=== PATIENT | male | born 1985 | race Caucasian/White ===

== ENCOUNTER 2016-10-18 08:06 | Inpatient (IN) | payer OTHER ==
[~2016-10-18] VITALS: Ht 182.9 cm; Wt 81.8 kg
[2016-10-18 08:14] VITALS: BP 124/67; PULSE 100; RESP 16; O2SAT 99
--- NOTE | 2016-10-18 08:18 | ED.REPORT ---
HPI-General Illness Date of Service Oct 18, 2016 ED Provider: Greg Tobar MD Patient is an otherwise healthy 31 year old male who presents to the ED via EMS complaining of abdominal pain onset yesterday. His abdominal pain is sharp and achy with radiation to his back. Associated symptoms include subjective fever, chills, nausea and vomiting onset last night. He denies dysuria, hematuria, or any other symptoms. He was given 100 Fentanyl, Zofran, and 20mg Ketamine en route. He had an unknown abdominal surgery in [place] 1 yr ago. When questioned about the surgery he is unable to articulate why he had surgery or what was done. It is unclear why he was given ketamine en route. Nursing Notes Stated Complaint: COLIC Chief Complaint: Male Abdominal Pain Nursing Notes Reviewed: Yes Allergies: Coded Allergies: Penicillins (Verified Allergy, Severe, hives, 10/18/16) haloperidol (Verified Allergy, Severe, EPS, 10/18/16) latex (Verified Allergy, Severe, rash, mouth swelling, 10/18/16) No Active Prescriptions or Reported Meds General Time Seen by MD: 08:17 Chief Complaint Abdominal pain Hx Obtained From: Patient Arrived By: Ambulance Sudden in Onset?: Yes Onset Occurred: Yesterday Symptom Duration: Since onset Similar Sx Previous: No Past Medical History Past Medical History PTSD Past Surgical History Foot Hand wisdom teeth unknown abdominal surg Reports: Appendectomy Smoking History Unknown if Ever Smoker Ambulatory Status Independent Review of Systems Full Review of Systems Constitutional: Reports: Chills, Fever GI: Reports: Abdominal pain, Nausea, Vomiting Male: Denies Dysuria, Denies Hematuria Musculoskeletal: Reports: Back pain Complete sys rev & neg: except as marked. Physical Exam Vital Signs Vital Signs Date Time Temp Pulse Resp B/P Pulse Ox O2 Delivery O2 Flow Rate FiO2 10/18/16 10:05 77 16 130/75 99 Room Air 10/18/16 08:14 37.0 100 16 124/67 99 Room Air Initial VS: Reviewed, Vital signs normal Head / Eyes: Atraumatic, Normocephalic Neck: Full range of motion Respiratory: Breath sounds normal, Clear to auscultation, No respiratory distress Cardiovascular: Regular rate & rhythm, Heart sounds normal, Intact distal pulses Skin: Warm, Dry Neurologic: Alert, Oriented, Nonfocal Psychiatric: Mood/affect normal, Behavior normal, Normal thought content General/Constitutional: Awake, Alert, Well developed Abdomen: Atraumatic, Soft, No guarding, No rebound Well healed scar in his RUQ Diffusely mild tenderness Male Genitourinary: Atraumatic, Inspection NL, Penis NL circumcised Interpretation & Diagnostics Lab Results Interpretation Result Diagram: 10/18/16 0820 10/18/16 0820 Test 10/18/16 08:20 White Blood Count 12.7th/mm3 (3.8-10.1) Red Blood Count 5.95mil/mm3 (4.40-5.80) Hemoglobin 17.8g/dL (13.8-17.2) Hematocrit 51.1% (41.0-50.0) Mean Corpuscular Volume 85.9fL (81-100) Mean Corpuscular Hemoglobin 29.9pg (27.0-35.0) Mean Corpuscular Hemoglobin Concent 34.8% (32.0-37.0) Red Cell Distribution Width 13.1% (12.3-15.4) Platelet Count 237bil/L (150-400) Neutrophils (%) (Auto) 82.5% (40-74) Lymphocytes (%) (Auto) 8.9% (14-46) Monocytes (%) (Auto) 6.1% (4-12) Eosinophils (%) (Auto) 2.0% (0-5) Basophils (%) (Auto) 0.3% (0-3) Sodium Level 139mEq/L (134-144) Potassium Level 3.9mEq/L (3.5-5.2) Chloride Level 103mEq/L (97-108) Carbon Dioxide Level 22mmol/L (18-29) Blood Urea Nitrogen 10mg/dL (6-20) Creatinine 0.90mg/dL (0.76-1.27) Estimat Glomerular Filtration Rate 103mL/min (>59) Glucose Level 127mg/dL (60-99) Calcium Level 8.6mg/dL (8.5-10.1) Magnesium Level 2.0mg/dL (1.6-2.6) Total Bilirubin 0.6mg/dL (0.0-1.2) Aspartate Amino Transf (AST/SGOT) 13U/L (0-50) Alanine Aminotransferase (ALT/SGPT) 12U/L (0-44) Alkaline Phosphatase 97U/L (25-150) Total Protein 7.0g/dL (6.4-8.4) Albumin 3.8g/dL (3.4-5.0) Lipase 40U/L (13-60) Hold Jennings Top Tube Received (Received) CT Abd / Pelvis Interpretation CT KUB: IMPRESSION: 1. Marked gastric distention and distention of the mid small bowel with stool in the colon, suspicious for partial small bowel obstruction. Early ileus could also be considered in the differential. No definite transition point is visualized; however this is limited study given the lack of contrast and intraperitoneal fat. No free fluid. No pneumoperitoneum. Consider placing an NG tube to decompress the stomach. 2. No nephrolithiasis, hydronephrosis, hydroureter, or ureterolithiasis. These findings were discussed with Dr. Tobar at 10:27 AM on 10/18/16. Dictated by: Roxana Jeffers M.D. on 10/18/2016 at 10:09 Approved by: Roxana Jeffers M.D. on 10/18/2016 at 10:28 Interpretation / Wet Read by: Interpret - Radiologist, Discussed w radiologist Re-Eval/Medical Decision Med Decision/Clinical Course Patient is a 31-year-old male with unspecified abdominal surgery approximately one year ago who presents to the emergency department complaining of abdominal pain, nausea and vomiting. Here in the emergency department he appears uncomfortable and is vomiting into an emesis bag but is otherwise afebrile and hemodynamically stable. Laboratory studies were obtained as below: cbc leukocytosis 12.7 hematocrit 51.1 lipase and LFT nL limits CMP unremarkable Patient was treated with the below medications: IV fluid Zofran hydromorphone CT KUB: 1. Marked gastric distention and distention of the mid small bowel with stool in the colon, suspicious for partial small bowel obstruction. Early ileus could also be considered in the differential. No definite transition point is visualized; however this is limited study given the lack of contrast and intraperitoneal fat. No free fluid. No pneumoperitoneum. Consider placing an NG tube to decompress the stomach. 2. No nephrolithiasis, hydronephrosis, hydroureter, or ureterolithiasis. Noncontrast abdominal CT was obtained in this patient due to initial triage description of symptoms that sounded suggestive of renal colic. Upon further evaluating the patient is presentation is suggestive of possible small bowel obstruction as evidenced by imaging findings as above. Patient was made NPO a nasogastric tube was placed. He reported symptom improvement with decompression of the stomach. Patient was discussed with Dr. Mullins (general surgery) requested patient be admitted to the hospitalist service and he will consult. Patient was transferred in stable condition. Time of Eval: 10:39 Re-Evaluation/Progress Note: Rechecked patient. Discussed imaging results and plan for admission. Patient understands and agrees with plan. All questions addressed at this time. Consultation #1: Referral / Consult Name: Alcon Mullins MD Consulted With: Surgeon Call Returned at: 10:45 [employer] Consultant: Will see patient, Agrees with eval, Agrees with plan Note: Discussed pt's case. Admit pt to hospitalist. Consultation #2: Referral / Consult Name: Grant Nelson MD Consulted With: Hospitalist [employer] Consultant: Will see patient, Agrees with eval, Agrees with plan, Accepts admit Note: Discussed pt's case. accepts admit. Counseled Regarding: Diagnosis, Lab results, Need for admission Discharge & Departure Primary Impression: Small bowel obstruction Additional Impressions: Nausea and vomiting Vomiting type: unspecified Vomiting Intractability: unspecified Qualified Code: R11.2 - Nausea with vomiting, unspecified Leukocytosis Leukocytosis type: unspecified Qualified Code: D72.829 - Elevated white blood cell count, unspecified Dehydration Abdominal pain Abdominal location: unspecified location Qualified Code: R10.9 - Unspecified abdominal pain History of abdominal surgery Disposition: ADMITTED TO HOSPITAL Discharge Condition All VS Reviewed: Yes Condition: Improved Referrals: NOPCP (PCP) Scribe Attestation Portions of this note were transcribed by Rony Parekh. I, Dr. Tobar personally performed the history, physical exam and medical decision-making; I reviewed and confirmed the accuracy of the information in the transcribed note. Signed by: Rony Parekh 10/18/16, Greg Connell MD Oct 18, 2016 08:18 RONY PAREKH Oct 18, 2016 09:31
[2016-10-18 08:34] LABS: BASOPHILS % (AUTO) 0.3 % (0-3); MONOCYTES % (AUTO) 6.1 % (4-12); Mean Corpuscular Hemoglobin 29.9 pg (27.0-35.0); Mean Corpuscular Volume 85.9 fL (81-100); NEUTROPHILS % (AUTO) 82.5 % (40-74); Platelet Count 237 bil/L (150-400)
[2016-10-18] MEDS ORDERED: 0.9% Sodium Chloride 1,000 ML IV ONE ×2 (09:00→09:34)
[2016-10-18] MEDS ORDERED: Ondansetron 2 mg/mL 2 mL Inj IVPUSH ONE (09:35)
[2016-10-18] MEDS: HYDROmorphone 0.5 mg/0.5 mL iSecure Syringe IVPUSH PRN ×4 (10:02→11:43)
[2016-10-18 10:05] VITALS: BP 130/75; PULSE 77; RESP 16; O2SAT 99
--- NOTE | 2016-10-18 10:30 | DRSVH ---
PROCEDURE: CT KUB ([id number]) INDICATIONS: abd pain TECHNIQUE: Noncontrast 5 mm thick sections acquired from the diaphragms to the symphysis. 5 mm thick coronal an d sagittal reformats were then performed. For radiation dose reduction, the following was used: aut omated exposure control, adjustment of mA and/or kV according to patient size. COMPARISON: [facility], CT, CT ABDOMEN PELVIS W CONTRAST, 04/18/2016, 9:38 PM. FINDINGS: Image quality: Excellent. Lung bases: Lung bases are clear. Heart size is normal. Urinary system: Both kidneys are normal in size. No kidney stones. No hydronephrosis or perinephri c fat stranding. Both ureters appear non-dilated throughout their expected courses. Bladder wall th ickness is normal; no calcified bladder stones. Other solid organs: Liver and spleen are normal in size. Gallbladder is surgically absent. Pancrea s is normal in contours. No adrenal nodules. Peritoneum and bowel: The stomach is moderately distended with fluid and gas. The proximal small carmen l is decompressed. The mid and distal small bowel is dilated and fluid-filled. No pneumatosis. No def inite transition point is visualized within the small bowel; however evaluation is limited by the lac k of intraperitoneal fat and lack of oral and intravenous contrast. The colon is stool-filled and dem onstrates normal course and caliber. The appendix is not visualized; however there is no discrete rig ht lower quadrant fluid or fat stranding to suggest acute appendicitis. Nodes and vessels: No retroperitoneal or mesenteric adenopathy by size criteria. Aorta and inferior vena cava are normal in caliber. Abdominal wall: No ventral hernias. Fat stranding within the right lower quadrant periumbilical soft tissues suggest the presence of a small subcutaneous hematoma. Pelvis: No free pelvic fluid. No inguinal hernias or adenopathy. Bones: No suspicious bony lesions. No vertebral body compression fractures. IMPRESSION: 1. Marked gastric distention and distention of the mid small bowel with stool in the colon, suspiciou s for partial small bowel obstruction. Early ileus could also be considered in the differential. No d efinite transition point is visualized; however this is limited study given the lack of contrast and intraperitoneal fat. No free fluid. No pneumoperitoneum. Consider placing an NG tube to decompress th e stomach. 2. No nephrolithiasis, hydronephrosis, hydroureter, or ureterolithiasis. These findings were discussed with Dr. Tobar at 10:27 AM on 10/18/16. Dictated by: Roxana Jeffers M.D. on 10/18/2016 at 10:09 Approved by: Roxana Jeffers M.D. on 10/18/2016 at 10:28
[2016-10-18] MEDS ORDERED: Ondansetron 2 mg/mL 2 mL Inj IVPUSH PRN (10:45)
[2016-10-18] MEDS ORDERED: Lidocaine 2% 6mL Topical Jelly ONE (10:49)
[2016-10-18] MEDS: 0.9% Sodium Chloride 1,000 ML IV SCH ×2 (11:25→20:34)
[2016-10-18 11:43] VITALS: BP 115/44; PULSE 74; RESP 14; O2SAT 99
[2016-10-18] MEDS ORDERED: Polyethylene Glycol (PEG) 17 Gm Powder PO PRN (11:50)
[2016-10-18] MEDS ORDERED: Alum-Mag Hydrox-Simeth 30 mL Suspension PO PRN (11:50)
[2016-10-18] MEDS ORDERED: Heparin 5,000 Unit/mL Inj SUBQ SCH (12:00)
--- NOTE | 2016-10-18 12:15 | NUR ---
Admit to room 249-1 Pt arrived to room via stretcher. NG in place, clamp at about the 54 linda red tinged fluid with clots present. checked placement, +gurgles noted in stomach region. Sleepy but arouses easily
[2016-10-18 12:30] VITALS: BP 133/78; PULSE 98; RESP 18; O2SAT 99
[2016-10-18] MEDS: Ondansetron 2 mg/mL 2 mL Inj IVPUSH PRN ×2 (15:01→18:17)
--- NOTE | 2016-10-18 15:06 | CONS ---
[address] [address] CONSULTATION REPORT PATIENT: VASU DUENAS : 1985 MR#: [id number] ADMIT: 10/18/2016 JOB ID: [id number] DATE OF SERVICE: 10/18/2016 REQUESTED BY: Greg Tobar MD, and Jason Nelson MD. REASON FOR CONSULTATION: Abdominal pain. Possible bowel obstruction. HISTORY: A 31-year-old male who reports onset of abdominal pain yesterday, perhaps earlier than that, but is a little vague. He says the pain was nonlocalized. It increased in severity. It became associated with nausea and vomiting. He is not sure when he had his last bowel movement, but thinks it may have been three days ago. He denies passing gas or having a bowel movement today. He stated that he had an operation in [place] a year ago. 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 He does not know if he has had his appendix removed. He states he is in a lot of stress, going through a difficult divorce. Had a lap regine by Dr. Stephenson 2013. He came to the emergency department and was found to have a mild leukocytosis with a white count of 12,500. He is hemoconcentrated. His electrolytes, liver function tests, lipase are normal. A noncontrast CT scan was obtained which demonstrated marked gastric distention and distention of the mid small bowel, but there was stool in the colon. There was no contrast given. It was interpreted as being suspicious for partial small bowel obstruction. No definitive transition point is visualized. An NG-tube was placed. He was admitted to hospitalist service of Dr. Gomez. Omar. I was in the operating room when the patient was admitted. PAST MEDICAL HISTORY: Operations: Abdominal operation, question abdominal wall versus intra-abdominal. Lap Regine by Dr. Stephenson 2013. He says that it was done for MRSA. 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 MEDICATIONS: He takes no medications at home. HABITS: He denies smoking, alcohol, marijuana, or street drugs. 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 says he is going through a divorce. REVIEW OF SYSTEMS: Otherwise negative. He drifts off to sleep during the middle of my interview. PHYSICAL EXAMINATION: Alert appearing, under no distress. Temperature is 36.7. Brachial blood pressure 133/78, pulse 98, respiratory rate 18, O2 sat 99%. HEENT: He has an NG tube in place. Neck supple without appreciable masses. Lungs: Clear. Cardiac exam: Regular rhythm. No murmurs or gallops appreciated. Abdomen was flat. He has a transverse right lower quadrant incisions. It measures about 3-4 cm. It is well healed. It is a little high for a typical McBurney incision. Genitalia: He is circumcised. Extremities: No edema. Skin. Many tattoos, nonjaundiced. Neurologic exam: Appropriate affect. He does answer questions. No obvious cranial nerve deficits. I observed him to move all extremities. Gait: Not tested. NG tube is in place with brownish gastric fluid. LABORATORY RESULTS: White blood cell count 12.7, hematocrit is 31.1. Platelet count 237,000. Electrolytes 139. Potassium 3.9, creatinine 0.9, glucose 127. Liver function tests, lipase normal. CT scan is personally reviewed by myself and I have also reviewed the dictation by Dr. Roxana Jeffers. IMPRESSION: Possible bowel obstruction. PLAN: Continue with NG tube for now. If he does not improve, will do a Gastrografin challenge. MTDD
[2016-10-18 16:30] VITALS: BP 119/75; PULSE 73; RESP 16; O2SAT 98
[2016-10-18] MEDS ORDERED: Pantoprazole 4 mg/mL 10 mL Inj IVPUSH SCH (18:35)
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
[2016-10-18 20:20] VITALS: BP 127/79; PULSE 80; RESP 24; O2SAT 100
[2016-10-18 21:07] LABS: BASOPHILS % (AUTO) 0.4 % (0-3); EOSINOPHILS % (AUTO) 3.5 % (0-5); MONOCYTES % (AUTO) 9.5 % (4-12); Mean Corpuscular Hemoglobin 29.8 pg (27.0-35.0); Mean Corpuscular Volume 86.4 fL (81-100); NEUTROPHILS % (AUTO) 65.1 % (40-74); Platelet Count 173 bil/L (150-400)
--- NOTE | 2016-10-18 21:37 | DRSVH ---
PROCEDURE: CT ABDOMEN AND PELVIS WITHOUT CONTRAST ([id number]) INDICATIONS: worsening abd pain, SBO, free air? TECHNIQUE: Noncontrast 5 mm thick sections acquired from the diaphragms to the symphysis. 5 mm coronal and sagi ttal reformats were then performed. For radiation dose reduction, the following was used: automated exposure control, adjustment of mA and/or kV according to patient size. COMPARISON: [facility], CT, CT KUB, 10/18/2016, 9:52. FINDINGS: Image quality: Excellent. ABDOMEN: Lung bases: Lung bases are clear. Heart size is normal. Solid organs: Liver and spleen are normal in size. Gallbladder is surgically absent. Pancreas is n ormal in contours. No adrenal nodules. Kidneys are normal in size, without hydronephrosis or nephro lithiasis. Peritoneum and bowel: An NG tube is present the tip of which is at the gastroesophageal junction. The stomach has been partially decompressed when compared with the CT from earlier today. There has been interval decompression of the small bowel. No findings to suggest persistent bowel obstruction. The colon is stool-filled and demonstrates normal caliber and wall thickness. Nodes and vessels: No retroperitoneal or mesenteric adenopathy by size criteria. Aorta and inferior vena cava are normal in caliber. Miscellaneous: No ventral hernias. PELVIS: Genitourinary: Bladder wall thickness is normal. Miscellaneous: No inguinal hernias or adenopathy. Bones: No suspicious bony lesions. No vertebral body compression fractures. IMPRESSION: 1. Interval partial decompression of the stomach and decompression of the small bowel when compared w ith the study from earlier today. No findings to suggest persistent bowel obstruction. No pneumatosis or pneumoperitoneum. 2. The NG tube tip is at the gastroesophageal junction and should likely be advanced into the gastric fundus. Dictated by: Roxana Jeffers M.D. on 10/18/2016 at 21:32 Approved by: Roxana Jeffers M.D. on 10/18/2016 at 21:36
[2016-10-18] MEDS: HYDROmorphone 1 mg/mL Inj IVPUSH PRN (23:02)
[2016-10-19 00:42] VITALS: BP 123/70; PULSE 91; RESP 20; O2SAT 93
[2016-10-19] MEDS: Lansoprazole 30 mg ODTablet NGTUBE SCH ×3 (01:10→19:26)
[2016-10-19] MEDS ORDERED: Pantoprazole Inj 80 MG in 0.9% Sodium Chloride 80 ML IV ONE (01:15)
[2016-10-19] MEDS: Pantoprazole Inj 80 MG in 0.9% Sodium Chloride 80 ML IV SCH ×3 (02:50→23:38)
[2016-10-19] MEDS: HYDROmorphone 1 mg/mL Inj IVPUSH PRN ×6 (03:25→22:36)
[2016-10-19] MEDS: 0.9% Sodium Chloride 1,000 ML IV SCH ×2 (06:11→16:30)
[2016-10-19 06:23] VITALS: BP 124/77; PULSE 80; RESP 21; O2SAT 95
[2016-10-19] MEDS: Ondansetron 2 mg/mL 2 mL Inj IVPUSH PRN (06:29)
--- NOTE | 2016-10-19 07:20 | NUR ---
NG/pain/protonix gtt Patient c/o increased abdominal pain 10/10 uncontrolled with morphine. dark reddish brown NG output with clots approximately 300mls in canister. bowel tones active x4 quadrants soft tender to touch. vitals stable MD notified. new order for CT WO contrast. CT shows NG out of place. MD states to advance NG 5cm and chest xray for placement. NG tube currently at 60cm. patient had 900mls of dark reddish brown with clot return. MD notified of output and increased pain. patient started on Protonix gtt and bolus. NG output changed to greenish brown with no clots. patient continues to c/o 10/10 pain. falls asleep easily during conversation. breathing nonlabored. CPOX in place. 02 maintained above 95%. awakens easily to voice. will continue to monitor. 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
[2016-10-19 07:24] LABS: BASOPHILS % (AUTO) 0.3 % (0-3); EOSINOPHILS % (AUTO) 1.8 % (0-5); MONOCYTES % (AUTO) 6.3 % (4-12); Mean Corpuscular Hemoglobin 29.8 pg (27.0-35.0); Mean Corpuscular Volume 86.4 fL (81-100); NEUTROPHILS % (AUTO) 82.3 % (40-74); Platelet Count 177 bil/L (150-400)
[2016-10-19 07:53] LABS: Magnesium 1.7 mg/dL (1.6-2.6)
[2016-10-19 08:00] VITALS: BP 134/75; PULSE 80; RESP 20; O2SAT 99
--- NOTE | 2016-10-19 08:13 | NUR ---
Social Work: Screening Data: Pt is a 31 y/o male admitted for SBO, pt's PCP is not listed, pt's insurance is [facility]. EMR reviwed. No d/c planning needs anticipated at this time. RAT POISONER will continue to follow if needs arise. Assessment: Pt who is independent at baseline. Plan: Pt will d/c home via POV when medically stable. No d/c planning needs anticipated at this time. RAT POISONER will continue to follow if needs arise. JAZZY Singh
--- NOTE | 2016-10-19 09:13 | NUR ---
Pain/food Pt reports feels slightly better than yesterday. Pain abd into back, rx given. pt states very hungry, asking for advanced diet. Reviewed plan, bowel rest, NG tube. Pt stated understanding.
[2016-10-19] MEDS ORDERED: Magnesium Sulf 4 Gm/100 mL H2O 4 GM in IV Premix 1 EACH IV ONE (09:15)
--- NOTE | 2016-10-19 10:45 | NUR ---
Held am med Pt on protonix gtt. notified of rx held
--- NOTE | 2016-10-19 11:11 | DRSVH ---
PROCEDURE: X-RAY CHEST ONE VIEW ([id number]) INDICATIONS: CHECK FOR NG TUBE PLACEMENT. TECHNIQUE: One view of the chest was acquired. COMPARISON: None. FINDINGS: Surgical changes and devices: Nasogastric tube extends below the imaging margin, at least in the trudy lucrecia body Lungs and pleura: No pleural effusions or pneumothorax. Lungs are clear. Mediastinum: Mediastinal contours appear normal. Heart size is normal. Bones and chest wall: No suspicious bony lesions. Overlying soft tissues appear unremarkable. IMPRESSION: Nasogastric tube positioning normal, no pneumonia found. Source of chest pain is not see n. Dictated by: Grey Isabel M.D. on 10/19/2016 at 11:08 Approved by: Grey Isabel M.D. on 10/19/2016 at 11:09
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
--- NOTE | 2016-10-19 14:03 | PROG NOTE ---
[address] [address] PROGRESS NOTE PATIENT: VASU DUENAS : 1985 MR#: [id number] ADMIT: 10/18/2016 JOB ID: [id number] DATE: 10/19/2016 SUBJECTIVE: The patient is seen in followup. He is feeling better this morning. He would like to eat. He has not had a bowel movement during the evening. A repeat CT scan was obtained which showed decreased small bowel distention and was interpreted as showing no evidence of small bowel obstruction and there was no pneumatosis or free air. Also, a repeat white blood cell count was obtained last night and it fell to 7.1. But, the CT also showed that his NG tube was just at the GE junction and it was advanced. A large amount of fluid came out of the stomach and was described as having blood with clots. This morning, again he says he is feeling better. He would like to eat. States he is having decreased pain but denies flatus or bowel movements. DATE: REVIEW OF SYSTEMS: Otherwise negative. Recalls this morning that he did have a cholecystectomy which was performed by Dr. Stephenson three years ago. PHYSICAL EXAMINATION: He is sleeping and I awoke him from his sleep, no distress. BMI 24.5, temperature 36.9, brachial blood pressure 134/75, pulse 80, respiratory rate 20, O2 sat room air 99%. NG tube has a brownish fluid. He put out a total of 1400 cc from his NG tube and he also had 1000 cc emesis which is a total through last night. His lungs are clear. Cardiac examination: Regular rhythm. Abdomen is flat, soft, not distended and I cannot elicit any tenderness. LABORATORY RESULTS: White blood cell count this morning is 11.3, hematocrit is 45.8, platelet count 177,000. Chest x-ray today shows no evidence of pneumonia and no free air. IMPRESSION: It is not clear to me what caused his initial gastric distention. It is also not clear to me whether or not he actually has a gastrointestinal bleed or if what was observed during the middle of night is simply from NG tube trauma. I discussed his care with Dr. Jason Nelson. I recommended asking gastroenterology to do a consult and an upper endoscopy and Dr. Bloomingdale agreed with this and he will be contacting them. I also think it is fine if he has clear liquids or water with the presence of the NG. It often makes people feel more comfortable. I do not think he has any current surgical issues. I do not think he has a bowel obstruction. But if he does not show return of bowel function, then tomorrow I will likely order a Gastrografin challenge. Time spent with the patient, and also in coordination of care, 40 minutes.
[2016-10-19 16:30] VITALS: BP 122/69; PULSE 80; RESP 20; O2SAT 100
--- NOTE | 2016-10-19 18:20 | NUR ---
NG/pain/shower NG putting out clear fluid with dk flecks (pt taking in ice) Has occasional cough. Pain up to 10 in lower back, especially on right side. IV dilaudid given with short term relief. Pt took shower, only required set-up help.
[2016-10-19 19:35] VITALS: BP 116/69; PULSE 87; RESP 18; O2SAT 97
--- NOTE | 2016-10-19 20:18 | NUR ---
PAIN Pt's pain is not under control with 1mg q4h Dilaudid. Pain in right abdomen and wraps around to back Pt states pain is 10/10, pt tolerates 7/10, says dilaudid only lasts a few minutes then wears off. Paged Dr. Valladares, who ordered in one hour at 2120, if pain not improved, give 2 mg Morphine IV. Will follow this order, and reassess pain often. Addendum: 10/19/16 at 2214 by DAVID AMAYA RN Gave 2mg of Morphine at 2120. Pt reported pain down to 9/10 after 20 minutes. Reassessment after 1 hour, pain back up to 10/10 worsened by coughing. Paged Dr. Valladares. Awaiting reply. Addendum: 10/19/16 at 2231 by DAVID AMAYA RN Changed orders to IV Dilaudid 0.5 mg q2h.
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
[2016-10-20] VITALS (9 sets, daily range): BP systolic 108–130; BP diastolic 56–78; PULSE 67–102; RESP 14–22; O2SAT 95–100
[2016-10-20] MEDS: HYDROmorphone 1 mg/mL Inj IVPUSH PRN ×7 (00:28→22:02)
[2016-10-20] MEDS: Ondansetron 2 mg/mL 2 mL Inj IVPUSH PRN ×2 (01:43→04:16)
[2016-10-20] MEDS: Benzocaine-Menthol Lozenge 2/Pkg PO PRN ×5 (01:48→20:46)
[2016-10-20] MEDS: 0.9% Sodium Chloride 1,000 ML IV SCH ×3 (02:41→17:25)
[2016-10-20 03:08] LABS: Hepatitis A Antibody IgM Negative (Negative); Hepatitis B Core Antibody IgM Negative (Negative)
[2016-10-20] MEDS ORDERED: fentaNYL-PF 50 mCg/mL 2 mL Inj IVPUSH PRN (06:00)
[2016-10-20] MEDS: Lansoprazole 30 mg ODTablet NGTUBE SCH ×2 (08:30→19:12)
[2016-10-20 09:46] LABS: BASOPHILS % (AUTO) 0.2 % (0-3); MONOCYTES % (AUTO) 9.2 % (4-12); Mean Corpuscular Hemoglobin 29.8 pg (27.0-35.0); NEUTROPHILS % (AUTO) 76.6 % (40-74); Platelet Count 171 bil/L (150-400)
[2016-10-20 10:01] LABS: Magnesium 1.9 mg/dL (1.6-2.6)
[2016-10-20] MEDS ORDERED: Benzocaine-Menthol Lozenge 2/Pkg PO PRN (10:30)
--- NOTE | 2016-10-20 10:59 | PROG NOTE ---
[address] [address] PROGRESS NOTE PATIENT: VASU DUENAS : 1985 MR#: [id number] ADMIT: 10/18/2016 JOB ID: [id number] DATE: 10/20/2016 SUBJECTIVE: The patient is seen in followup. He reports that he passed a large amount of gas this morning. He is hungry and would like to eat. He is scheduled for an endoscopy today. REVIEW OF SYSTEMS: He reported to Dr. Steve that he had an exploratory laparotomy at [facility] but the incision he has in his right lower quadrant is a very small incision that is in no means an exploratory laparotomy. He also, when I mentioned [facility], did not seem to recall that. He seems to be doing better. PHYSICAL EXAMINATION: Temperature 37.0, brachial blood pressure 121/78, pulse rate 99, respiratory rate 22, O2 sat on room air 98%. NG tube, 700 cc is recorded. It looks very diluted. It is a little green. I suspect that this is a total amount including whatever he drank as opposed to a net amount subtracting the volume that he drank from the recorded amount. His abdomen is flat. LABORATORY RESULTS: Today, white count 11.1, hematocrit 44.1, platelet count 171,000. Electrolytes and creatinine are normal. He has a persisting elevation of his alk phos and his ALT but he has a normal bilirubin and AST. IMPRESSION: Abdominal pain, possible partial bowel obstruction. I think he has improved. He stated he passed a large amount of gas this morning. I, again, do not think he had an exploratory laparotomy but rather some abdominal wall incision, maybe an appendectomy to account for his small right abdominal incision. I clamped his nasogastric tube. It has to come out for his esophagogastroduodenoscopy, which is happening in 3 hours. If he has less 100 cc coming out of his nasogastric tube, then the nasogastric will be removed and not need to be replaced. Assuming that occurs, he could be started on clear liquids, advance as tolerated, after his esophagogastroduodenoscopy.
[2016-10-20] MEDS: Pantoprazole Inj 80 MG in 0.9% Sodium Chloride 80 ML IV SCH (11:00)
--- NOTE | 2016-10-20 11:30 | NUR ---
To Endo Patient left floor at 1130 to Endo. Addendum: 10/20/16 at 1529 by KEI WITT RN Patient returned to floor at 1310
--- NOTE | 2016-10-20 12:19 | NUR ---
NG Output NG clamped at [address] Mullins request. Output 55mls at 1130. Dr. Mullins notified and orders received to leave NG out and begin clear diet advance as tolerated.
--- NOTE | 2016-10-20 13:47 | ENDO ---
[address] [address] ENDOSCOPY PROCEDURE PATIENT: VASU DUENAS : 1985 MR#: [id number] ADMIT: 10/18/2016 JOB ID: [id number] DATE OF SERVICE: 10/20/2016 PROCEDURE: Esophagogastroduodenoscopy. PREOPERATIVE DIAGNOSIS: Upper gastrointestinal bleed. POSTOPERATIVE DIAGNOSES: 1. Moderate distal esophagitis with clean-based esophageal ulcer seen in the distal esophagus near the gastroesophageal junction at 40 cm. Most likely due from nasogastric tube trauma. Status post biopsy. 2. Mild bulbar duodenitis, status post biopsy. ANESTHESIA: Fentanyl 150 mcg, Versed 8 mg IV administered. COMPLICATIONS: None. BLOOD LOSS: Minimal. DESCRIPTION OF PROCEDURE: After risks and benefits explained to the patient, informed consent was obtained. After anesthesia administered, upper endoscope was inserted through the mouth, into the esophagus, stomach, second portion of duodenum. Mucosa carefully examined. After procedure was done, the scope withdrawn and procedure terminated. FINDINGS: Prior to the procedure, we removed the NG tube. Per the nursing report, there was only 55 cc fluid from NG tube that was found during this morning prior to the procedure. After the NG tube was removed, the scope was then advanced into the esophagus. There was moderate distal esophagitis with streaks of inflammation along with distal clean- based, nonbleeding esophageal ulcer measuring approximately 5 mm in diameter which was biopsied. Z-line located at 40 cm from incisor. Upon entry of the stomach, there was no masses, ulcers, or lesions that were seen. Retroflexion did show a small hiatal hernia along with a long streak of what appeared to be continued esophagitis from NG tube trauma. The duodenal bulb appeared to be mildly inflamed but the first and second portion were normal without masses, ulcers, or lesions. Biopsies taken of the duodenal bulb, antrum, body and distal esophagus, to rule out Helicobacter pylori. IMPRESSION: 1. Bulbar duodenitis. 2. A 5 mm clean-based, nonbleeding distal esophageal ulcer, status post biopsy. 3. Moderate distal esophagitis. Most likely from NG tube trauma. RECOMMENDATIONS: 1. Await pathology results. 2. Protonix 40 mg by mouth twice a day. 3. Carafate 1 g by mouth four times a day. 4. Okay to start clear liquid diet. MTDD
[2016-10-20 14:36] LABS: APPEARANCE,URINE CLEAR (CLEAR,HAZY); COLOR,URINE YELLOW (YELLOW); OCCULT BLOOD,URINE TRACE (NEGATIVE); UROBILINOGEN,URINE NORMAL (NORMAL)
[2016-10-20] MEDS: Sucralfate 1,000 mg Tablet PO SCH ×2 (17:24→20:43)
[2016-10-20] MEDS: Pantoprazole 40 mg ER24 Tablet PO SCH (20:43)
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
[2016-10-21] MEDS: HYDROmorphone 1 mg/mL Inj IVPUSH PRN ×3 (00:36→06:08)
--- NOTE | 2016-10-21 03:07 | NUR ---
DIET Pt tolerating new soft diet well. Pt ate most of dinner, taking in a sufficient amount of oral fluids, and snacking while awake at night with no complaints of nausea or increased pain. Pt has yet to have BM, but is passing gas.
[2016-10-21] MEDS: Sucralfate 1,000 mg Tablet PO SCH ×2 (06:06→12:56)
[2016-10-21 06:11] VITALS: BP 114/71; PULSE 78; RESP 18; O2SAT 95
[2016-10-21] MEDS: Pantoprazole 40 mg ER24 Tablet PO SCH (07:43)
--- NOTE | 2016-10-21 07:44 | PCM.PNSURG ---
Subjective Date of Service: Oct 21, 2016 Date of Service: Oct 21, 2016 Visit Information: Reason for Visit Small Bowel Obstruction Surgery/Surgery Date EGD 10/20 Post-Op Day # 1 Date of Admission: Oct 18, 2016 at 11:24 Hospital Day # 3 Subjective: Patient reports doing well overnight with some abdominal pain. 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 prior to eating softs he was having less pain. He is having nausea that comes and goes but is tolerable. He is not experiencing any fever or chills. He has not vomitted. He is passing flatus but no bowel movement. Postop General: No Shortness of Breath Gastrointestinal: Good Appetite, Tolerating Oral Feedings, Passing Flatus Pain Management: IV Push Objective Vital Sign- Last 8 Hours Date Time Temp Pulse Resp B/P Pulse Ox O2 Delivery O2 Flow Rate FiO2 10/21/16 06:11 78 18 114/71 95 Room Air Intake and Output- Last 8 Hour 10/21/16 Cumulative From/Thru 07:00 10/18/16 08:14 - 10/21/16 05:58 Intake Total 2512 ml 87082 ml Output Total 1200 ml 9080 ml Balance 1312 ml 3152 ml Intake Oral 1962 ml 3850 ml IV Total 550 ml 8382 ml Output Urine Total 1200 ml 5175 ml Gastric Drainage Total 2605 ml Emesis 1000 ml Other 300 ml # Voids 0 # Bowel Movements 0 General: Alert, Oriented X3, Cooperative, No Acute Distress Neck: Supple Lungs: Clear to Auscultation, Normal Air Movement Heart: Regular Rate/Rhythm, No Murmurs/Rubs/Gallops Abdomen: Soft, Appropriately tender (Right sided tenderness to palpation), Guarding, Non-distended, Normoactive bowel tones, Other (transverse well healed surgical scar to the right of midline) Extremities: Distal Pulses Palpable, Warm Neuro: Grossly Neurologically Intact Catheters: None Result Diagram: 10/20/1691910/20/16919 Diagnostics: PROCEDURE: Esophagogastroduodenoscopy. PREOPERATIVE DIAGNOSIS: Upper gastrointestinal bleed. POSTOPERATIVE DIAGNOSES: 1. Moderate distal esophagitis with clean-based esophageal ulcer seen in the distal esophagus near the gastroesophageal junction at 40 cm. Most likely due from nasogastric tube trauma. Status post biopsy. 2. Mild bulbar duodenitis, status post biopsy. IMPRESSION: 1. Bulbar duodenitis. 2. A 5 mm clean-based, nonbleeding distal esophageal ulcer, status post biopsy. 3. Moderate distal esophagitis. Most likely from NG tube trauma. RECOMMENDATIONS: 1. Await pathology results. 2. Protonix 40 mg by mouth twice a day. 3. Carafate 1 g by mouth four times a day. 4. Okay to start clear liquid diet. Stanislaw Steve MD 10/20/16 1217 Assessment & Plan Impression This is a 31-year-old male with history of appendectomy, cholecystectomy, ex lap in the past for an acute abdominal infection, PTSD presents here admitted for abdominal pain due to small bowel obstruction. The patient was placed with a NG tube which showed some blood. EGD showed Bulbar duodenitis, A 5 mm clean-based, nonbleeding distal esophageal ulcer, that was biopsied, Moderate distal esophagitis; most likely from NG tube trauma. Blood counts have been stable, liver enzymes are downtrending. Patient has been tolerating soft diet with some abdominal pain and is continuing to pass flatus. Problems: Plan RECOMMENDATIONS: 1. Continue Protonix 40 mg by mouth twice a day. 2. Carafate 1 g by mouth four times a day. 3. If patient continues to tolerate soft diet throughout the day from a GI standpoint he will be okay to discharge home when medically stable. Pain Management: per hospitalist team Resuscitation Status: CPR: Attempt Resuscitation Nini Kilgore DO Oct 21, 2016 07:44
[2016-10-21 08:17] LABS: BASOPHILS % (AUTO) 0.2 % (0-3); MONOCYTES % (AUTO) 9.8 % (4-12); Mean Corpuscular Volume 86.4 fL (81-100); NEUTROPHILS % (AUTO) 71.6 % (40-74); Platelet Count 175 bil/L (150-400)
[2016-10-21] MEDS: Lansoprazole 30 mg ODTablet NGTUBE SCH (08:30)
[2016-10-21 08:45] LABS: Magnesium 1.6 mg/dL (1.6-2.6)
--- NOTE | 2016-10-21 10:20 | PCM.PNSURG ---
Subjective Date of Service: Oct 21, 2016 Date of Service: Oct 21, 2016 Visit Information: Reason for Visit Small Bowel Obstruction Surgery/Surgery Date EGD 10/20 Post-Op Day # Date of Admission: Oct 18, 2016 at 11:24 Hospital Day # Subjective: Patient is seen in surgical follow-up. HD#4 admitted with a possible bowel obstruction. Yesterday he had some bleeding via his NGT and underwent endoscopy /EGD where he was found to have moderate distal esophagitis with clean-based esophageal ulcer seen in the distal esophagus near the gastroesophageal junction (most likely due from nasogastric tube trauma) and mild bulbar duodenitis. Today he reports that he feels better but still has not had a bowel movement. He reports less abdominal pain, tolerating a regular diet without nausea and he is passing flatus. WBC normalized. Gastrointestinal: Tolerating Oral Feedings, Passing Flatus Postop Activity: Ambulating Independently Objective Objective not very talkative but pleasant enough Vital Sign- Last 8 Hours Date Time Temp Pulse Resp B/P Pulse Ox O2 Delivery O2 Flow Rate FiO2 10/21/16 06:11 78 18 114/71 95 Room Air Intake and Output- Last 8 Hour 10/21/16 Cumulative From/Thru 07:00 10/18/16 08:14 - 10/21/16 05:58 Intake Total 2512 ml 24489 ml Output Total 1200 ml 9080 ml Balance 1312 ml 3152 ml Intake Oral 1962 ml 3850 ml IV Total 550 ml 8382 ml Output Urine Total 1200 ml 5175 ml Gastric Drainage Total 2605 ml Emesis 1000 ml Other 300 ml # Voids 0 # Bowel Movements 0 General: Alert, Cooperative, No Acute Distress Lungs: Clear to Auscultation, Normal Air Movement Heart: Regular Rate/Rhythm Abdomen: Non-distended, Normoactive bowel tones, Other (mildly tender throughout with deep palpation but not localized and no peritoneal signs) Neuro: Grossly Neurologically Intact, Normal Speech Catheters: None Result Diagram: 10/21/16 0755 10/21/16 0755 Assessment & Plan Impression Primary Dx: 1. Partial/possible SBO 2. Gastritis/Duodenitis 31 yo male admitted with partial SBO that seems to be resolved although he has not had a bowel movement yet. EGD yesterday showed some moderate gastritis and mild duodenitis and he is tolerating a regular diet. From a surgical standpoint , he probably doesn't need to stay in the hospital until he has a formed stool. He is passing flatus and tolerating a diet which are both encouraging. Problems: Plan Treatment of gastritis and duodenitis as per GI. F/U with PCP. Pain Management: would avoid narcotics if possible Resuscitation Status: CPR: Attempt Resuscitation Leah Dumont PAC Oct 21, 2016 10:20
--- NOTE | 2016-10-21 11:03 | NUR ---
spiritual care: pt request/nursing referral pt expressed his thoughts and emotions as he anticipates discharge regarding personal issue in progress. pt articulate as he sifted through recent stresses and plans for future. Pt assessed strengths and support going forward.
--- NOTE | 2016-10-21 12:29 | NUR ---
IV IV began leaking and pt reports pain at IV site. IV removed and heat pack applied. Hospitalist made aware and OK to leave IV out.
[2016-10-21] MEDS ORDERED: Polyethylene Glycol (PEG) 17 Gm Powder PO PRN (12:55)
[2016-10-21] MEDS: Benzocaine-Menthol Lozenge 2/Pkg PO PRN (12:59)
--- NOTE | 2016-10-21 13:40 | PCM.DIMED ---
Discharge Instructions Date of Service Oct 21, 2016 Dates of Hospitalization Oct 18, 2016 at 11:24 Discharge Diagnosis Discharge Diagnosis Abdominal Pain due to partial bowel obstruction Diet Discharge Diet: No restrictions (Patient may advance diet gradually as tolerated) Activity Discharge Activity: No restrictions (Patient may increase activity gradually as tolerated.) Call your provider Call your provider for: Fever or Chills, Shortness of breath, Bleeding, Chest pain, Vomitting, Excessive diarrhea, Weakness (unilateral) Patient Instructions Follow-up Provider: [facility] Follow-up with PCP in: 1 week Provider: Stanislaw Steve MD Follow-up in: 2 weeks (For GI follow up) Grant Nelson MD Oct 21, 2016 13:40
[2016-10-21] MEDS ORDERED: SUCR1TAB30 PO (13:47)
[2016-10-21] MEDS ORDERED: POLY17PO6 PO (13:47)
[2016-10-21] MEDS ORDERED: PANT40TA3 PO (13:47)
--- NOTE | 2016-10-21 14:13 | NUR ---
Social Work: Discharge D: EMR reviewed. Per MD in AM multi-disciplinary rounds, pt is medically stable and will discharge today. Pt is on day 3 of hospitalization. SW does not anticipate any discharge planning needs at this time. SW will continue to follow if needs arise. A: Pt who is independent at baseline. P: Pt will discharge home via POV today. SW does not anticipate any discharge planning needs at this time. SW will continue to follow if needs arise. JAZZY Hernández
--- NOTE | 2016-10-21 14:17 | NUR ---
Discharge Patient left floor via wheelchair at 1415 to be driven home by friend. All discharge information discussed with patient including medications and follow up appointments. IV was d/c'd intact prior to d/c. All belongings left with patient.
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
--- NOTE | 2016-10-24 15:46 | PATH ---
SURGICAL PATHOLOGY Attending Physician:Stanislaw Steve MD CASE STATUS: Signed Out PATIENT NAME: VASU DUENAS PID: [id number] : 1985 DATE COLLECTED:10/20/2016 00:00 SPECIMEN: 1: Duodenum, Biopsy 2: Stomach, Antrum, Biopsy 3: Gastric, Biopsy 4: Esophagus, Biopsy CLINICAL HISTORY: 1). DUODENUM BIOPSY 2). GASTRIC ANTRUM BIOPSY, RULE OUT H.PYLORI 3). GASTRIC BODY BIOPSY 4). DISTAL ESOPHAGUS ULCER BIOPSY FINAL DIAGNOSIS: 1. Duodenum, Biopsy: Mild active duodenitis, non-specific. Negative for features of sprue, dysplasia, or malignancy. 2. Gastric Antrum, Biopsy: Portion of gastric antral mucosa with chronic active gastritis. No definite H. pylori organisms identified by H&E stain. Immunohistochemistry studies pending; results will be reported as an addendum. Negative for intestinal metaplasia, dysplasia and malignancy. 3. Gastric Body, Biopsy: Portions of gastric body-type mucosa with chronic active gastritis. Organisms morphologically suggestive of H. pylori organisms identified by H&E stain. Immunohistochemistry studies pending for confirmation; results will be reported as an addendum. Negative for intestinal metaplasia, dysplasia and malignancy. 4. Distal Esophagus Ulcer, Biopsy: Scant, detached fragments of squamous mucosa with active esophagitis. Fragments of fibrinopurulent exudate. A fungal stain is pending; results will be reported as an addendum. ICD10: K20.9 GROSS DESCRIPTION: The specimen is received in four formalin filled containers labeled with the patient's name. 1). The specimen is sublabeled "duodenum" since of 3 portions of tissue which aggregate to 0.3 x 0.3 x 0.2 CM. The specimen is entirely submitted in cassette 1A. 2). Specimen a sublabeled "gastric antrum" and consists of a 0.3 x 0.3 x 0.3 CM portion of tissue which is entirely submitted in cassette 2A. 3). The specimen is sublabeled "gastric body" and consists of 3 portions of tissue which aggregate to 0.3 x 0.3 x 0.2 CM. The specimen is entirely submitted in cassette 3A. 4). The specimen is sublabeled "distal esophagus ulcer" and consists of a 0.1 x 0.1 x 0.1 CM portion of tissue which is entirely submitted in cassette 4A. 10/21/2016 [facility] ICD-9 CODES: CPT CODES: 1: 21941 2: 96652, 08798 3: 64719, 32794, 05458 4: 82695 PROCEDURE/ADDENDA: Addendum SPI Addendum Diagnosis 2. Gastric Antrum, Biopsy: Negative for H. pylori organisms by immunohistochemistry studies. 3. Gastric Biopsy: Very rare, possible, treated H. pylori organisms present by immunohistochemistry studies. 4. Esophagus, Biopsy: No definite fungal organisms identified by PAS stain. * This test was developed and its performance characteristics determined by [facility]. It has not been cleared or approved by the U.S. Food and Drug Administration. The FDA has determined that such clearance or approval is not necessary. This test is used for clinical purposes. It should not be regarded as investigational or for research. Addendum Comment {Not Entered} Electronically Signed Out Krista Winslow MD Electronically Signed Out Krista Winslow MD [facility] [address], [place] [address] [facility] at [facility], [address], [place], [address]
== END 2016-10-21 14:15 | disposition home or self-care (01) | DRG 390 ==
LOC: SED 08:06 → EDBD 08:06 → MOC 11:24
PROVIDERS: ADMIT Internal Medicine Infectious Disease; ATTEND Internal Medicine Infectious Disease
PROC: 0D9670Z Drainage of Stomach with Drainage Device, Via Natural or Artificial Opening (ICD-10-PCS; 2016-10-18)
PROC: 0DB98ZX Excision of Duodenum, Via Natural or Artificial Opening Endoscopic, Diagnostic (ICD-10-PCS; 2016-10-20)
PROC: 0DB58ZX Excision of Esophagus, Via Natural or Artificial Opening Endoscopic, Diagnostic (ICD-10-PCS; principal; 2016-10-20 11:30)
DX: K56.60 Unspecified intestinal obstruction (principal); K29.80 Duodenitis without bleeding; Z86.14 Personal history of Methicillin resistant Staphylococcus aureus infection

== ENCOUNTER 2017-01-19 01:08 | Observation (INO) | payer MEDICAID, OTHER ==
[2017-01-19] VITALS (7 sets, daily range): BP systolic 102–121; BP diastolic 46–74; PULSE 67–115; RESP 16–24; O2SAT 95–100
[~2017-01-19] VITALS: Ht 182.9 cm; Wt 80.0 kg
[~2017-01-19 01:08] MED LIST: PANT40TA3 PO; POLY17PO6 PO; SUCR1TAB30 PO
--- NOTE | 2017-01-19 01:09 | ED.REPORT ---
HPI-Abd Pain M Under 40 Date of Service Jan 19, 2017 ED Provider: Grant Esposito MD The patient is a 31 year old male with a history of asthma, depression, PTSD, extrapyramidal syndrome, and colon cancer presenting to the ED via EMS complaining of right flank pain onset tonight. The patient claims that the pains radiates down to his right testicle. Additionally, he admits to hematuria. Denied symptoms include fever, vomiting, shortness of breath, nausea , or chills. He denies any history of kidney stones. Nursing Notes Stated Complaint: R FLANK PAIN Nursing Notes Reviewed: Yes Allergies: Coded Allergies: Penicillins (Verified Allergy, Severe, Anaphylaxis, 01/19/17) haloperidol (Verified Allergy, Severe, EPS, 01/19/17) latex (Verified Allergy, Severe, Anaphylaxis, 01/19/17) Scheduled Pantoprazole DR (Pantoprazole DR) 40 Mg Tablet.dr 40 MG PO BID General Time Seen by MD: 01:08 Chief Complaint Flank pain right Hx Obtained From: Patient Arrived By: Ambulance Sudden in Onset?: Yes Onset Occurred: Just prior to arrival Symptom Duration: Since onset Location: : Flank right Quality: Painful Radiation: : Flank right (to right testicle) Associated with: Reports: Hematuria Recent Healthcare: Recent doctor visit, Recent hospitalization Similar Sx Previous: No Past Medical History Past Medical History Asthma Depression PTSD Colon cancer Past Surgical History Foot Hand wisdom teeth unknown abdominal surg Reports: Appendectomy Smoking History Never Smoker Ambulatory Status Independent Review of Systems Constitutional: Denies: Chills, Fever Respiratory: Denies: Shortness of breath GI: Denies: Nausea, Vomiting Male: Reports Flank pain (right flank), Reports Hematuria, Reports Testicular pain (right testicle) Complete sys rev & neg: except as marked. Physical Exam Initial Vital Signs Vital Signs (First) Date Time Temp Pulse Resp B/P Pulse Ox O2 Delivery O2 Flow Rate FiO2 01/19/17 01:12 110 24 108/46 95 Room Air Initial VS: Reviewed, Vital signs normal Head / Eyes: Atraumatic, Normocephalic ENT: Mucous membranes moist Neck: Supple, Full range of motion Lymphatic: No lymphadenopathy Extremities: Vascular intact, Neuro intact Skin: Warm, Dry Neurologic: Alert, Oriented Psychiatric: Mood/affect normal, Behavior normal General/Constitutional: Awake, Alert Appearance / Presentation: Positive: Uncomfortable Writhing Respiratory / Chest: Atraumatic, Breath sounds NL, Breath sounds = bilat, No respiratory distress Cardiovascular: Heart rate NL, Regular rhythm, Heart sounds NL Abdomen: Atraumatic, Soft, Non-tender Belly benign Back: Atraumatic, Inspection NL Interpretation & Diagnostics Lab Results Interpretation Result Diagram: 01/19/17 0155 01/19/17 0155 Test 01/19/17 01:55 White Blood Count 6.9th/mm3 (3.8-10.1) Red Blood Count 4.77mil/mm3 (4.40-5.80) Hemoglobin 14.4g/dL (13.8-17.2) Hematocrit 42.4% (41.0-50.0) Mean Corpuscular Volume 88.9fL (81-100) Mean Corpuscular Hemoglobin 30.2pg (27.0-35.0) Mean Corpuscular Hemoglobin Concent 34.0% (32.0-37.0) Red Cell Distribution Width 14.1% (12.3-15.4) Platelet Count 209bil/L (150-400) Neutrophils (%) (Auto) 46.9% (40-74) Lymphocytes (%) (Auto) 38.3% (14-46) Monocytes (%) (Auto) 6.8% (4-12) Eosinophils (%) (Auto) 6.4% (0-5) Basophils (%) (Auto) 1.5% (0-3) Sodium Level 141mEq/L (134-144) Potassium Level 4.1mEq/L (3.5-5.2) Chloride Level 105mEq/L (97-108) Carbon Dioxide Level 21mmol/L (18-29) Blood Urea Nitrogen 11mg/dL (6-20) Creatinine 0.87mg/dL (0.76-1.27) Estimat Glomerular Filtration Rate 107mL/min (>59) Glucose Level 93mg/dL (60-99) Calcium Level 8.5mg/dL (8.5-10.1) Magnesium Level 2.0mg/dL (1.6-2.6) Total Bilirubin 0.3mg/dL (0.0-1.2) Aspartate Amino Transf (AST/SGOT) 22U/L (0-50) Alanine Aminotransferase (ALT/SGPT) 18U/L (0-44) Alkaline Phosphatase 51U/L (25-150) Total Protein 6.9g/dL (6.4-8.4) Albumin 4.3g/dL (3.4-5.0) Lipase 38U/L (13-60) Hold Jennings Top Tube Received (Received) CT Abd / Pelvis Interpretation IMPRESSION: Status post cholecystectomy. Mildly prominent common bild duct/intrahepatic ducts. This could be secondary to prior surgery. Occult obstructing process not excluded and followup is recommended. This report was transmitted to the emergency room at 01/19/2017 - 3:23:33 AM PDT. Study type: Abdominal CT IV contrast Interpretation / Wet Read by: Interpret - Radiologist Re-Eval/Medical Decision Med Decision/Clinical Course 31-year-old with history of colon cancer resected, cholecystectomy, and prior kidney stone. He presents with a right flank pain radiating to the testicle. CT scan does not reveal any hydronephrosis or stone. This does not appear consistent with a recently passed stone, and in any case, his pain is persistent. He does have moderately pronounced dilatation of the common bile duct at 12 mm. This appears to extend into the anterolateral panic area. No obvious mass or stone is seen. Admitted now for additional evaluation including MRCP this morning. Re-Evaluation/Progress : Time of Eval: 03:29 Re-Evaluation/Progress Note: Patient rechecked. Discussed lab and radiology results, and plan to admit. The patient understands and agrees with the plan. All questions addressed at this time. Consultation : Referral / Consult Name: Cynthia Sheppard DO Consulted With: Hospitalist Call Returned at: 03:45 Woodwind Instrument Repairer: Will see patient, Agrees with plan, Accepts admit Counseled Regarding: Diagnosis, Lab results, Need for admission Patient Discharge & Departure Primary Impression: Flank pain Additional Impression: Common bile duct dilatation Disposition: ADMITTED TO HOSPITAL Discharge Condition All VS Reviewed: Yes Condition: Stable Referrals: NOPCP (PCP) Nalini Attestation Portions of this note were transcribed by Ronn Knutson. I, Dr. Esposito personally performed the history, physical exam and medical decision-making; I reviewed and confirmed the accuracy of the information in the transcribed note. Signed by: Nalini Houser, 01/19/2017 Grant Esposito MD Jan 19, 2017 01:09 Jan 19, 2017 01:17
[2017-01-19] MEDS ORDERED: Ondansetron 2 mg/mL 2 mL Inj IVPUSH ONE (01:20)
[2017-01-19] MEDS ORDERED: HYDROmorphone 1 mg/mL Inj IVPUSH ONE ×2 (01:20→22:45)
[2017-01-19 02:02] LABS: BASOPHILS % (AUTO) 1.5 % (0-3); EOSINOPHILS % (AUTO) 6.4 % (0-5); MONOCYTES % (AUTO) 6.8 % (4-12); Mean Corpuscular Hemoglobin 30.2 pg (27.0-35.0); Mean Corpuscular Volume 88.9 fL (81-100); NEUTROPHILS % (AUTO) 46.9 % (40-74); Platelet Count 209 bil/L (150-400)
[2017-01-19] MEDS: HYDROmorphone 1 mg/mL Inj IVPUSH PRN ×8 (02:05→19:37)
[2017-01-19] MEDS ORDERED: Alum-Mag Hydrox-Simeth 30 mL Suspension PO ONE (02:50)
[2017-01-19] MEDS ORDERED: Ketorolac 15 mg/mL Inj IVPUSH ONE (04:00)
[2017-01-19] MEDS: Lactated Ringer's 1,000 ML IV SCH ×2 (04:06→19:36)
[2017-01-19] MEDS ORDERED: Ondansetron 2 mg/mL 2 mL Inj IVPUSH PRN ×2 (04:10→05:45)
[2017-01-19] MEDS ORDERED: Polyethylene Glycol (PEG) 17 Gm Powder PO PRN (05:45)
[2017-01-19] MEDS ORDERED: Alum-Mag Hydrox-Simeth 30 mL Suspension PO PRN (05:45)
[2017-01-19] MEDS: diphenhydrAMINE 25 mg Capsule PO PRN (05:53)
--- NOTE | 2017-01-19 06:18 | PCM.HPMED ---
Subjective Date of Service Jan 19, 2017 Primary Provider: Admitting Physician: Cynthia Sheppard DO Primary Care Physician: Other,Physician Attending Physician: Clifton Penn MD Chief Complaint: Flank Pain, Hematuria History of Present Illness: Patient is a 31 year old male with PMHx of asthma, PTSD, kidney stones , and colon cancer who presented after two days of R flank pain that began to radiate around to the front groin today. Patient reports he has been having dysuria and hematuria starting yesterday evening at around 23:00. He notes that he felt nauseous the night before the flank pain started, but did not vomit. Pain is 8/10 and nothing makes it better. Moving makes it worse. He denies fever, CP, SOB, diarrhea, or constipation. Patient also notes that he began to feel itchy all over his body starting yesterday as well. He has taken one Benadryl with relief of pruritis. In the ED patient received two doses of Toradol, and two doses of Dilaudid 1mg and 1L of Lactate Ringer. Review of Systems: ROS reviewed and otherwise negative unless noted above. Allergies Coded Allergies: Penicillins (Verified Allergy, Severe, Anaphylaxis, 01/19/17) haloperidol (Verified Allergy, Severe, EPS, 01/19/17) latex (Verified Allergy, Severe, Anaphylaxis, 01/19/17) Home Medications Scheduled Pantoprazole DR (Pantoprazole DR) 40 Mg Tablet.dr 40 MG PO BID Sucralfate (Carafate) 1 Gm Tablet 1,000 MG PO QID Scheduled PRN Polyethylene Glycol 3350 (Miralax) 17 Gm Powd.pack 17 GM PO DAILY PRN PRN For Constipation PMH Asthma Depression PTSD Colon cancer Surgical History Appendectomy Cholecystectomy Hand Surgery Patient reports 2 feet of colon removed. Family History CAD, DM, HTN in father CAD, DM, HTN in mother. Social History Hx Alcohol Use: Yes Alcoholic Drinks Per Day: Social Hx Substance Use: No Hx Tobacco Use: No Smoking Status: Never Smoker Living Arrangement: with Family Exam Vital Signs Vital Sign - Last Date Time Temp Pulse Resp B/P Pulse Ox O2 Delivery O2 Flow Rate FiO2 01/19/17 05:38 36.9 84 20 120/66 95 Room Air Exam Constitutional: Awake, Alert and oriented x3, In no acute distress. Patient laying with girlfriend in bed comfortably as I entered the room, then began moving all about and complaining of pain and itching, did not sit still throughout interview and exam. Patient asking for benadryl and pain medication. Head: normocephalic and atraumatic Eyes: pupils equal round and reactive to light. no scleral icterus Mouth: mucous membranes moist, no posterior oropharynx erythema Heart: regular rate and rhythm, no murmurs, rubs, or gallops. no peripheral edema. Lungs: clear to auscultation, no wheeze, rales, or rhonchi. ABD: soft, nontender, bowel sounds present throughout. mild right flank tenderness Musculoskeletal: moves all four extremities appropriately. Sitting up and laying down multiple times throughout exam. Neuro: CN II-XII intact. no focal deficits. Skin: warm, dry, no rash Psych: appropriate mood and affect, but anxious Lab and Diagnostics Labs Item Value Date Time Red Blood Count 4.77 mil/mm3 01/19/17154 Mean Corpuscular Volume 88.9 fL 01/19/17154 Mean Corpuscular Hemoglobin 30.2 pg 01/19/17154 Mean Corpuscular Hemoglobin Concent 34.0 % 01/19/17154 Red Cell Distribution Width 14.1 % 01/19/17154 Neutrophils (%) (Auto) 46.9 % 01/19/17154 Lymphocytes (%) (Auto) 38.3 % 01/19/17154 Monocytes (%) (Auto) 6.8 % 01/19/17154 Eosinophils (%) (Auto) 6.4 % H 01/19/17154 Basophils (%) (Auto) 1.5 % 01/19/17154 Estimat Glomerular Filtration Rate 107 mL/min 01/19/17154 Calcium Level 8.5 mg/dL 01/19/17154 Magnesium Level 2.0 mg/dL 01/19/17154 Total Bilirubin 0.3 mg/dL 01/19/17154 Aspartate Amino Transf (AST/SGOT) 22 U/L 01/19/17154 Alanine Aminotransferase (ALT/SGPT) 18 U/L 01/19/17154 Alkaline Phosphatase 51 U/L 01/19/17154 Total Protein 6.9 g/dL 9/28/17 0155 Albumin 4.3 g/dL 01/19/17154 Lipase 38 U/L 01/19/17154 Result Diagram: 01/19/1715401/19/17154 X-Rays, CTs and MRIs CT Abd / Pelvis Interpretation IMPRESSION: Status post cholecystectomy. Mildly prominent common bild duct/intrahepatic ducts. This could be secondary to prior surgery. Occult obstructing process not excluded and followup is recommended. This report was transmitted to the emergency room at 01/19/2017 - 3:23:33 AM PDT. Assessment & Plan Patient is a 31 year old male with PMHx of asthma, PTSD, kidney stones , and colon cancer who presented after two days of R flank pain that began to radiate around to the front groin today. - Acute R Flank Pain, POA, Active, Stable - Patient has R flank pain w/o evidence of nephrolithiasis on CT, but dilated common bile duct seen. - Consult GI in AM for possible obstructing stone - Morphine IV for pain - AM CBC, CMP - Monitor -Obtain a UA - History of GERD, Chronic, Active, Stable - Continue home dose of Omeprazole Patient is FULL CODE Due to the abnormal CT findings, patient is admitted under the observation status and expected length of stay is less than two midnights. Pain Evaluation: Adequate Pain Control GI Prophylaxis: H2 colleen VTE Prophylaxis Indicated: Meets Criteria for Anticoag Therapy VTE Prophylaxis: Sub-Q Heparin (Unfractionated) Resuscitation Status: CPR: Attempt Resuscitation Attending Statement The patient was seen and examined together with house staff on 01/19/2017 and I agree with the history, exam and plan as outlined in the note above. Rob Macdonald DO Jan 19, 2017 06:18 Cynthia Sheppard DO Jan 19, 2017 06:44
--- NOTE | 2017-01-19 06:26 | NUR ---
ADMIT Pt on floor at 0425. Report received from Cosmo Chou in ED. Pt ambulated to bed with minimal assistance. Admit complete. AC IV painful, per pt AC's always go bad. New IV in hand. Pt experiencing 9/10 pain, dilaudid given with some effect, will give morphine. Continuing care.
--- NOTE | 2017-01-19 07:39 | DRSVH ---
PROCEDURE: CT ABDOMEN AND PELVIS WITH CONTRAST ([id number]) INDICATIONS: Right flank pain hx colon ca resected TECHNIQUE: After the administration of intravenous contrast, 5 mm thick sections acquired from the diaphragm to the symphysis. 5 mm coronal and sagittal reformats were acquired. For radiation dose reduction, the following was used: automated exposure control, adjustment of mA and/or kV according to patient siz e. COMPARISON: [facility], CT, ABD/PELVIS W/CON (PNL), 09/12/2013, 22:52. [facility], CT, CT ABD PELVIS WO CON, 10/18/2016, 21:13. FINDINGS: Image quality: Excellent. ABDOMEN: Lung bases: Lung bases are clear. Heart size is normal. Solid organs: Liver and spleen are normal in size and enhancement. Gallbladder is surgically absent . Mild intrahepatic biliary dilation. Common bile duct is prominent measuring up to 10 mm. Pancreas enhances normally. No adrenal nodules. Kidneys demonstrate normal size and enhancement, without hyd ronephrosis. Peritoneum and bowel: Bowel loops demonstrate normal wall thickness and caliber. No free fluid or a ir. Nodes and vessels: No retroperitoneal or mesenteric adenopathy by size criteria. Aorta and inferior vena cava are normal in size. Miscellaneous: No ventral hernias. PELVIS: Genitourinary: Bladder wall thickness is normal. Miscellaneous: No inguinal hernias or adenopathy. Bones: No suspicious bony lesions. No vertebral body compression fractures. IMPRESSION: 1. No CT findings to explain right flank pain. 2. Cholecystectomy. There is intrahepatic and extrahepatic biliary dilation. Please correlate with se rum bilirubin. No significant discrepancy with the fast food shift lead radiology preliminary report. Dictated by: Kayden Kolb M.D. on 01/19/2017 at 7:35 Transcribed by: JANE on 01/19/2017 at 7:37 Approved by: Kayden Kolb M.D. on 01/19/2017 at 14:41
[2017-01-19 08:21] LABS: APPEARANCE,URINE HAZY (CLEAR,HAZY); COLOR,URINE YELLOW (YELLOW); PH,URINE 5.5 (5.0-8.0)
[2017-01-19 08:22] LABS: OCCULT BLOOD,URINE MODERATE (NEGATIVE); UROBILINOGEN,URINE NORMAL (NORMAL)
[2017-01-19] MEDS: Pantoprazole 40 mg ER24 Tablet PO SCH ×2 (09:17→20:55)
[2017-01-19] MEDS: Famotidine Inj 20 MG in IV Premix 1 EACH IV SCH ×2 (09:17→20:56)
[2017-01-19] MEDS: Heparin 5,000 Unit/mL Inj SUBQ SCH ×2 (09:18→16:47)
--- NOTE | 2017-01-19 12:43 | DRSVH ---
PROCEDURE: MR ABDOMEN MRCP INDICATIONS: post deric CBD dilatation 12mm TECHNIQUE: Coronal HASTE through the abdomen, axial 2-D FLASH in- and [id number], and breath-hold T2 FSE with fat saturation through the biliary system and pancreas. Oblique coronal and axial thin-slice HASTE, radial thick-slab HASTE centered on the extrahepatic bile ducts. Intravenous secretin: Not requested. COMPARISON: [facility], CT, CT ABD PELVIS W CON, 01/19/2017, 3:03. FINDINGS: Image quality: Excellent. Pancreas and biliary system: Intra- hepatic biliary ducts are non dilated. There is redemonstration of prominence of the common bile duct measuring approximately 10 mm which could be postsurgical in n ature. No intraluminal filling defects seen. No adjacent inflammatory changes. The ampullary segment is presumably decompressed and not well seen. If there is persistent high clinical suspicion, ERCP co uld be considered. Pancreas is normal in morphology, without adjacent soft tissue edema. Pancreatic duct is normal in caliber, without developmental anomalies. Gallbladder surgically absent. Other solid organs: Liver and spleen are normal in size. No adrenal nodules. Both kidneys are norm al in size, without hydronephrosis. Nodes and vessels: No retroperitoneal or mesenteric adenopathy by size criteria. Aorta and inferior vena cava are normal in size. Bowel and peritoneum: Unenhanced bowel loops are normal in caliber. No free fluid. Lung bases: No basal pleural effusions. Heart size is normal. Bones and soft tissues: No ventral hernias. Bone marrow is of normal overall signal. IMPRESSION: Status post cholecystectomy with prominence of the common bile duct which may be postoperative in darron ure. No intraluminal filling defect to suggest choledocholithiasis. No nearby inflammatory change. Dictated by: Erickson Meade M.D. on 01/19/2017 at 12:36 Approved by: Erickson Meade M.D. on 01/19/2017 at 12:41
--- NOTE | 2017-01-19 14:12 | NUR ---
Social Work: Initial Assessment / Multidisciplinary Rounds Data: See initial assessment. Patient is a 31 year old male who was admitted on 01/19/17 for flank pain and bilateral duct dilation per H&P. Patient's insurace is [facility] and [facility] Medicaid. Patient does not have a PCP listed at this time. EMR reviewed. SW met with patient to discuss discharge planning. SW role explained. Patient reports that he lives with a roommate on [address]. Patient denies having a DPOA or AD at this time and has declined SW offer for additional resources. Patient confirms that he is I at baseline and is able to perform all of his ADLs and care needs. Patient confirms that he drives via POV. Patient denies having a hx of home health services or SNF. Patient denies having terminal gauger supervisor care insurance or VA benefits. Patient states that upon discharge, transportation will be provided by his significant other. SW provided patient with a discharge planning checklist booklet and encouraged him to call with any questions or concerns. Phone number provided. SW will continue to follow. Assessment: Patient will likely discharge home when medically stable. Plan: Patient will likely discharge home when medically stable. Transportation will be provided by his significant other. SW will follow for needs. JAZZY Tripathi Addendum: 01/19/17 at 1419 by ISABEL KUO Amended: Links added.
[2017-01-19] MEDS ORDERED: diphenhydrAMINE 25 mg Capsule PO PRN (14:55)
--- NOTE | 2017-01-19 18:28 | NUR ---
PAIN/PCP APPOINTMENT PAIN LEVEL CONSISTENTLY AT 10/10 THIS SHIFT. MANAGED WITH IV DILAUDID AND OXYCODONE 5 MG TABLET Q 4H RELIGIOUSLY. PATIENT WAS INFORMED THAT WE WILL STOP IV PAIN MEDS AND SWITCH TO ORAL, AGREED WITH THE PLAN. FOLLOW UP APPOINTMENT SCHEDULED AT [facility] ON ( MONDAY)@ 09:00, PATIENT AND SIGNIFICANT OTHER AWARE.
[2017-01-20] MEDS: Heparin 5,000 Unit/mL Inj SUBQ SCH ×2 (00:50→07:59)
[2017-01-20] MEDS: HYDROmorphone 1 mg/mL Inj IVPUSH PRN ×2 (00:51→06:22)
[2017-01-20] MEDS: Lactated Ringer's 1,000 ML IV SCH ×2 (06:10→10:06)
[2017-01-20 06:31] LABS: BASOPHILS % (AUTO) 1.3 % (0-3); EOSINOPHILS % (AUTO) 11.3 % (0-5); Mean Corpuscular Hemoglobin 30.4 pg (27.0-35.0); Mean Corpuscular Volume 89.5 fL (81-100); NEUTROPHILS % (AUTO) 46.9 % (40-74); Platelet Count 217 bil/L (150-400)
[2017-01-20 06:34] VITALS: BP 124/68; PULSE 70; RESP 18; O2SAT 97
--- NOTE | 2017-01-20 06:53 | NUR ---
Pain: Continues to have pain that is not controlled.Hospitalist called and ordered a one time dose hydromorphone 1mg, pt slept after this for around 2-3 hours. taking in fluids well on own...see I&O for more details.
[2017-01-20] MEDS: Famotidine Inj 20 MG in IV Premix 1 EACH IV SCH (07:58)
[2017-01-20] MEDS: Pantoprazole 40 mg ER24 Tablet PO SCH ×2 (07:58→20:20)
[2017-01-20] MEDS: Sucralfate 1,000 mg Tablet PO SCH ×2 (11:33→17:07)
[2017-01-20 12:20] VITALS: BP 124/78; PULSE 71; RESP 12; O2SAT 99
--- NOTE | 2017-01-20 12:41 | NUR ---
Fob notified that pt had flatus with reggie blood noted in hat. Guiaic collected. Pt VSS, H&H stable this am. Pain continue to R lower back with some abdominal discomfort of palpation. MD to see pt this afternoon. Will continue to monitor and provide further bowel regimen per MD.
--- NOTE | 2017-01-20 13:05 | NUR ---
Social Work: Discharge/Multidisciplinary Rounds D: EMR reviewed. Pt is on day 2 of hospitalization. Pt discussed in multidisciplinary rounds and is medically stable for discharge home today with SO to transport via POV. RN scheduled outpt PCP appointment for at [facility] on 02/01/17 at 0900 and provided pt and SO with appointment information. No SW needs identified, no MD orders received. A: Pt who is independent at baseline. P: Pt to discharge home today with SO to transport via POV. RN scheduled outpt PCP appointment for at [facility] on 02/01/17 at 0900 and provided pt and SO with appointment information. No SW needs identified, no MD orders received. JAZZY Hernández
--- NOTE | 2017-01-20 14:15 | PCM.PNMED ---
Subjective Date of Service Jan 20, 2017 Subjective Pt has not had BM since admit. Reports Abd pain was better but has returned. Exam Vital Signs Vital Sign - Last Date Time Temp Pulse Resp B/P Pulse Ox O2 Delivery O2 Flow Rate FiO2 01/20/17 12:20 36.4 71 12 124/78 99 Room Air Intake and Output 01/19/17 01/19/17 01/20/17 Cumulative From/Thru 15:00 23:00 07:00 01/19/17 01:12 - 01/20/17 06:41 Intake Total 1885 ml 3760 ml 6045 ml Output Total 1800 ml 1750 ml 3550 ml Balance 85 ml 2010 ml 2495 ml Intake Oral 700 ml 1100 ml IV Total 1185 ml 3760 ml 4945 ml Output Urine Total 1800 ml 1750 ml 3550 ml # Bowel Movements 0 0 Exam Constitutional: Awake, Alert and oriented x3, In no acute distress. Patient laying with girlfriend in bed comfortably as I entered the room, then began moving all about and complaining of pain and itching, did not sit still throughout interview and exam. Patient asking for benadryl and pain medication. Head: normocephalic and atraumatic Eyes: pupils equal round and reactive to light. no scleral icterus Mouth: mucous membranes moist, no posterior oropharynx erythema Heart: regular rate and rhythm, no murmurs, rubs, or gallops. no peripheral edema. Lungs: clear to auscultation, no wheeze, rales, or rhonchi. ABD: soft, nontender, bowel sounds present throughout. mild right flank tenderness Musculoskeletal: moves all four extremities appropriately. Sitting up and laying down multiple times throughout exam. Neuro: CN II-XII intact. no focal deficits. Skin: warm, dry, no rash Psych: appropriate mood and affect, but anxious IVs and Medications Medications Reviewed: Medications were reviewed in detail Lab and Diagnostics Result Diagram: 01/20/17 0550 01/20/17 0550 X-Rays, CTs and MRIs CT Abd / Pelvis Interpretation IMPRESSION: Status post cholecystectomy. Mildly prominent common bild duct/intrahepatic ducts. This could be secondary to prior surgery. Occult obstructing process not excluded and followup is recommended. This report was transmitted to the emergency room at 01/19/2017 - 3:23:33 AM PDT. Assessment & Plan Patient is a 31 year old male with PMHx of asthma, PTSD, hx of gastric ulcer found 09/2016, kidney stones, and family history of colon cancer who presented after two days of R sided abd pain. Acute Abd Pain likely due to Gatric Ulcer, POA, Active - Patient has R flank pain w/o evidence of nephrolithiasis on CT, but dilated common bile duct seen. Pt does have hx of non bleeding Gastric Ulcer per EGD [address] Steve. May be component of constipation due to narcotics. - No evidence of malignancy on CT Abd. - Monitor for active GI Bleed. - Bowel regimen to see if alleviate symptoms. GI Bleed of unclear etiology- poa, active. No overt Melena to indicate bleeding ulcer, Hb has been stable. Pt reports some blood tinged stools. Does have hx of non-bleeding ulcer as above in 09/2016. Pt did have small bloody bowel movement in hospital on 01/20/17 which is more consistent with a lower GIB. No evidence of stool impaction on CT, however no BM since that CT. Discussed case with GI, agree with plan to watch for drop HB and bloody BM's. Otherwise, can follow up with Dr. Steve as outpatient on January 26 as planned. Will need repeat EGD and Colonoscopy given history of colon cancer. History of GERD, Chronic, Active, Stable - Change to Protonix PO BID, Added Carafate. Plan as above. Patient is FULL CODE Status- Due to the abnormal CT findings, patient is admitted under the observation status and expected length of stay is less than two midnights. GI Prophylaxis: H2 colleen VTE Prophylaxis: Sub-Q Heparin (Unfractionated) Resuscitation Status: CPR: Attempt Resuscitation Clifton Penn MD Jan 20, 2017 14:15
[2017-01-20] MEDS ORDERED: Polyethylene Glycol (PEG) 17 Gm Powder PO ONE ×2 (14:20→22:20)
[2017-01-20 15:13] LABS: BASOPHILS % (AUTO) 1.1 % (0-3); EOSINOPHILS % (AUTO) 8.2 % (0-5); MONOCYTES % (AUTO) 7.6 % (4-12); Mean Corpuscular Hemoglobin 30.5 pg (27.0-35.0); Mean Corpuscular Volume 89.4 fL (81-100); NEUTROPHILS % (AUTO) 65.4 % (40-74); Platelet Count 224 bil/L (150-400)
--- NOTE | 2017-01-20 15:26 | NUR ---
Status Pt seen at bedside by provider - aware of reggie bright red blood per rectum this afternoon, to continue to monitor labs in am and provide bowel regimen. Pain meds increased if needed. Pt stable and has outpt GI follow up. To continue to monitor.
[2017-01-20 18:27] VITALS: BP 127/79; PULSE 75; RESP 12; O2SAT 97
--- NOTE | 2017-01-20 18:28 | NUR ---
Status pt reports more blood per rectum this evening, per provider earlier no need for repeat guiaics. VSS. abdomen remains tender, provider aware of all of the above. WCTM.
[2017-01-20] MEDS: Senna-Docusate 8.6-50 mg Tablet PO SCH (20:20)
[2017-01-20] MEDS ORDERED: HYDROmorphone 0.5 mg/0.5 mL iSecure Syringe IVPUSH ONE (22:15)
[2017-01-20] MEDS: diphenhydrAMINE 25 mg Capsule PO PRN (22:29)
[2017-01-21 00:18] VITALS: BP 156/84; PULSE 85; RESP 17; O2SAT 98
--- NOTE | 2017-01-21 00:28 | NUR ---
Pain, Rectal Bleed Pt. reports of increasing pain to mid abd and right flank despite giving prn oxycodone, pt. also reported "I'm trying to have a BM but I couldn't get it, I was able to passed gas and there's some blood" noted mod.amount of bright red blood in hat notified via [employer] paged, given one time dose of IV dilaudid and miralax, pt. reports a little effect, will continue to monitor bleeding per rectum.
[2017-01-21 05:27] VITALS: BP 135/69; PULSE 89; RESP 17; O2SAT 99
[2017-01-21 05:29] LABS: BASOPHILS % (AUTO) 0.3 % (0-3); EOSINOPHILS % (AUTO) 3.6 % (0-5); MONOCYTES % (AUTO) 6.9 % (4-12); Mean Corpuscular Hemoglobin 30.1 pg (27.0-35.0); Mean Corpuscular Volume 87.6 fL (81-100); NEUTROPHILS % (AUTO) 83.7 % (40-74); Platelet Count 190 bil/L (150-400)
[2017-01-21] MEDS: Pantoprazole 40 mg ER24 Tablet PO SCH ×2 (08:05→20:33)
[2017-01-21] MEDS: Sucralfate 1,000 mg Tablet PO SCH ×3 (08:06→17:26)
[2017-01-21] MEDS: Senna-Docusate 8.6-50 mg Tablet PO SCH ×2 (08:06→20:33)
--- NOTE | 2017-01-21 08:30 | NUR ---
Status MD notified that pt has not had BM. Continues to c/o abdominal at rest and with palpation and R flank pain 9-01/31. VSS. High UOP 01/20 but stable weight this am.WCTM.
[2017-01-21] MEDS ORDERED: PEG/Electrolytes 4,000 mL Solution TUBE ONE ×2 (09:35→16:55)
--- NOTE | 2017-01-21 09:38 | DRSVH ---
PROCEDURE: X-RAY ABDOMEN, ONE VIEW ([id number]) INDICATIONS: Obstipation TECHNIQUE: One view of the abdomen acquired. COMPARISON: None. FINDINGS: Surgical changes and devices: None. Bowel: Bowel gas pattern is abnormal with moderate bilateral colonic obstipation.. Soft tissues: No suspicious abdominal calcifications. Visualized solid organ contours appear normal in size. Bones: No suspicious bony lesions. IMPRESSION: Right upper quadrant cholecystectomy clips, moderate bilateral colonic obstipation. Dictated by: Grey Isabel M.D. on 01/21/2017 at 9:36 Approved by: Grey Isabel M.D. on 01/21/2017 at 9:36
[2017-01-21 11:27] VITALS: BP 120/67; PULSE 81; RESP 12; O2SAT 98
--- NOTE | 2017-01-21 12:01 | PCM.PNMED ---
Subjective Date of Service Jan 21, 2017 Subjective Pt still has not had a BM, has had small bloody stools overnight. Exam Vital Signs Vital Sign - Last Date Time Temp Pulse Resp B/P Pulse Ox O2 Delivery O2 Flow Rate FiO2 01/21/17 11:27 37.3 81 12 120/67 98 Room Air Intake and Output 01/20/17 01/20/17 01/21/17 Cumulative From/Thru 15:00 23:00 07:00 01/19/17 01:12 - 01/21/17 06:21 Intake Total 2650 ml 876 ml 9571 ml Output Total 3300 ml 1000 ml 7850 ml Balance -650 ml -124 ml 1721 ml Intake Oral 2600 ml 876 ml 4576 ml IV Total 50 ml 4995 ml Output Urine Total 3300 ml 1000 ml 7850 ml # Bowel Movements 0 Exam Constitutional: Awake, Alert and oriented x3, In no acute distress. Patient laying with girlfriend in bed comfortably as I entered the room, then began moving all about and complaining of pain and itching, did not sit still throughout interview and exam. Patient asking for benadryl and pain medication. Head: normocephalic and atraumatic Eyes: pupils equal round and reactive to light. no scleral icterus Mouth: mucous membranes moist, no posterior oropharynx erythema Heart: regular rate and rhythm, no murmurs, rubs, or gallops. no peripheral edema. Lungs: clear to auscultation, no wheeze, rales, or rhonchi. ABD: soft, nontender, bowel sounds present throughout. mild right flank tenderness Musculoskeletal: moves all four extremities appropriately. Sitting up and laying down multiple times throughout exam. Neuro: CN II-XII intact. no focal deficits. Skin: warm, dry, no rash Psych: appropriate mood and affect, but anxious IVs and Medications Medications Reviewed: Medications were reviewed in detail Lab and Diagnostics Result Diagram: 01/21/17 0501/21/17 0520 X-Rays, CTs and MRIs CT Abd / Pelvis Interpretation IMPRESSION: Status post cholecystectomy. Mildly prominent common bild duct/intrahepatic ducts. This could be secondary to prior surgery. Occult obstructing process not excluded and followup is recommended. This report was transmitted to the emergency room at 01/19/2017 - 3:23:33 AM PDT. Assessment & Plan Patient is a 31 year old male with PMHx of asthma, PTSD, hx of Esophageal Ulcer found 09/2016, kidney stones, and family history of colon cancer who presented after two days of R sided abd pain. Acute Abd Pain likely due to Esophageal Ulcer, POA, Active - Patient has R flank pain w/o evidence of nephrolithiasis on CT, but dilated common bile duct seen. Pt does have hx of non bleeding Esophageal Ulcer per EGD 09/[address] Steve. May be component of constipation due to narcotics. - No evidence of malignancy on CT Abd. - Monitor for active GI Bleed. - Bowel regimen to see if alleviate symptoms. Obstipation- poa, active- Pt has not had BM since admit. Initial CT Abd did show some fecal retention. Repeat AXR on 01/21 showed moderate b/l Obstipation. Avoid IV Narcotics as will worsen constipation. Continue bowel regimen, Miralax, Docu-Senna PRN. Check Lactic acid, will Repeat CT Abd w/ po contrast this time if worsens or suspect perforation. Avoid Enema given rectal bleeding and pain. Will give 1L of Golytely. GI Bleed of unclear etiology- poa, active. No overt Melena to indicate bleeding ulcer, Hb has been stable. Pt reports some blood tinged stools. Does have hx of non-bleeding ulcer as above in 09/2016. Pt did have small bloody bowel movement in hospital on 01/20/17 which is more consistent with a lower GIB. No evidence of stool impaction on CT, however no BM since that CT. Discussed case with GI, agree with plan to watch for drop HB and bloody BM's. Otherwise, can follow up with Dr. Steve as outpatient on January 26 as planned. Will need repeat EGD and Colonoscopy given history of colon cancer. Leukocytosis- acute,resolved. Likely reactive due constipation or GI Bleed. Rule out infectious etiology. Check Blood Cultures. Lactic Acid. Repeat CBC in am. MOO likely due to Contrast induced Nephropathy- poa, active. Pt rcvd contrast in ED before admit. Not volume depleted but given obstipation will start IVF Repeat BMP in AM. History of GERD, Chronic, Active, Stable Change to Protonix PO BID, Added Carafate. Plan as above. Patient is FULL CODE Dispo- admission complicated by Severe constipation and hematochezia. GI Prophylaxis: H2 colleen VTE Prophylaxis: Sub-Q Heparin (Unfractionated) Resuscitation Status: CPR: Attempt Resuscitation Clifton Penn MD Jan 21, 2017 12:01 Clifton Penn MD Jan 21, 2017 12:01
[2017-01-21] MEDS: 0.9% Sodium Chloride 1,000 ML IV SCH ×2 (12:29→22:25)
[2017-01-21 12:51] LABS: BASOPHILS % (AUTO) 0.3 % (0-3); MONOCYTES % (AUTO) 3.6 % (4-12); Mean Corpuscular Hemoglobin 30.4 pg (27.0-35.0); NEUTROPHILS % (AUTO) 88.4 % (40-74); Platelet Count 163 bil/L (150-400)
--- NOTE | 2017-01-21 14:12 | NUR ---
Tobacco notified that pt was using chewing tobacco in room. Pt agreeable to RN taking and placing in room med bin. WBC and lactic stable. Pt has finished 1L of golytlely and awaiting BM. pt continues to state he is passing flatus. Poor appetite with little po intake today. Denies n/v. NS at 100ml/hr. Continues on oxy for abdominal/flank and tylenol provided for ABREU with some relief.
[2017-01-21] MEDS ORDERED: .Epic Conversion Completed XX PRN (15:25)
--- NOTE | 2017-01-21 18:10 | NUR ---
BM No Bm yet, MD aware. Per pt to finish remaining 3L of golytely. WCTM.
[2017-01-21 18:23] VITALS: BP 132/80; PULSE 93; RESP 24; O2SAT 100
[2017-01-21] MEDS: diphenhydrAMINE 25 mg Capsule PO PRN (21:58)
[2017-01-21 22:02] VITALS: BP 125/63; PULSE 79; RESP 17; O2SAT 97
== END 2017-01-22 01:33 | disposition admitted as inpatient to this hospital (09) ==
LOC: SED 01:08 → MOC 04:02
PROVIDERS: ADMIT Internal Medicine; ATTEND Internal Medicine
DX: R69 Illness, unspecified (principal)